=== PATIENT | female | born 1995 | race Two or more races ===

== ENCOUNTER 2021-05-10 08:51 | Emergency (ER) | payer OTHER ==
[~2021-05-10] VITALS: Ht 160 cm; Wt 60.0 kg
[2021-05-10 10:06] VITALS: BP 115/68
== END 2021-05-10 10:21 | disposition home or self-care (01) ==
LOC: EMS 08:55
DX: Z11.1 Encounter for screening for respiratory tuberculosis (principal)
CPT/HCPCS: 71045; 81002; 99283